=== PATIENT | male | born 1975 | race Caucasian/White ===

== ENCOUNTER 2017-06-25 18:45 | Inpatient (IN) | payer SELFPAY ==
[~2017-06-25] VITALS: Ht 175.3 cm; Wt 90.7 kg
[2017-06-25 20:17] LABS: ABG CO2 ARTERIAL 23 mmol/L (21-27); ARTERIAL BLD GAS O2 SATURATION 98 % (95-98); ARTERIAL BLOOD GAS PCO2 39 mmHg (32-45); ARTERIAL PO2 118 mmHg (70-100); BICARBONATE 22 mmol/L (21-28); BLOOD GAS BASE EXCESS -3 mM/L (-/+3); PH 7.37 Units (7.35-7.45)
[2017-06-25 20:25] LABS: BASO % 0.2 % (0-2); EOS % 0.5 % (0-7); EOSINOPHIL ABSOLUTE COUNT 0.1 tho/cmm (0.0-0.7); HCT-HEMATOCRIT 42.6 % (36.0-53.5); HGB-HEMOGLOBIN 14.9 gm/dl (13.5-17.0); IMMATURE GRANULOCYTES ABSOLUTE 0.07 tho/cmm (0-0.03); IMMATURE GRANULOCYTES PERCENT 0.5 % (0-0.3); LYMPH % 12.5 % (20-45); LYMPH ABSOLUTE COUNT 1.8 tho/cmm (0.8-4.5); MCH (MEAN CORPUSCULAR HGB) 29.2 pg (28.0-32.0); MCV (MEAN CELL VOLUME) 83.4 fl (82.0-96.0); MEAN PLATELET VOLUME 10.7 cmc (9.4-12.4); MONO % 5.8 % (0-12); MONOCYTE ABSOLUTE COUNT 0.8 tho/cmm (0.0-1.2); NEUTROPHIL ABSOLUTE COUNT 11.8 tho/cmm (1.6-8.0); NEUTROPHIL-AUTOMATED 11.8 tho/cmm (1.6-8.0); NEUTROPHILS % 80.5 % (40-80); PLATELET COUNT 249 tho/cmm (150-450); RED BLOOD COUNT 5.11 mil/cmm (4.40-5.70); RED CELL DISTRIBUTION WIDTH 12.6 % (12.4-16.4); WHITE BLOOD COUNT 14.6 tho/cmm (4.0-10.0)
[2017-06-25 20:30] LABS: PROTHROMBIN TIME 11.6 SECONDS (9.0-13.6)
[2017-06-25 20:40] LABS: ALBUMIN 3.5 g/dl (3.5-5.0); ALKALINE PHOSPHATASE 74 U/L (33-138); ALT/SGPT 44 U/L (12-78); BILIRUBIN,TOTAL 0.4 mg/dl (0.0-1.5); BLOOD UREA NITROGEN 21 mg/dl (6-24); CALCIUM 7.4 mg/dl (8.5-10.5); CARBON DIOXIDE-VENOUS 23 mmol/L (22-32); CHLORIDE 110 mmol/l (96-110); CREATININE 1.06 mg/dl (0.60-1.30); GLUCOSE 154 mg/dL (70-110); SODIUM 139 mmol/L (135-145); eGFR VALUE FOR BLACK >90 mL/Min
[2017-06-25 20:48] LABS: ANION GAP 10 mmol/L (0-20); POTASSIUM 4.1 mmol/L (3.7-5.1)
[2017-06-25 20:49] LABS: AST/SGOT 33 U/L (10-40)
[2017-06-26 06:43] LABS: ABG CO2 ARTERIAL 23 mmol/L (21-27); ARTERIAL BLD GAS O2 SATURATION 97 % (95-98); ARTERIAL BLOOD GAS PCO2 35 mmHg (32-45); ARTERIAL PO2 90 mmHg (70-100); BICARBONATE 22 mmol/L (21-28); BLOOD GAS BASE EXCESS -2 mM/L (-/+3); PH 7.42 Units (7.35-7.45)
[2017-06-26] MEDS ORDERED: IMITREX100 M2 PO (12:54)
[2017-06-26] MEDS ORDERED: TOPAMAX25 M3 PO (12:55)
[2017-06-26 18:52] LABS: BASO % 0.1 % (0-2); HGB-HEMOGLOBIN 15.8 gm/dl (13.5-17.0); IMMATURE GRANULOCYTES ABSOLUTE 0.05 tho/cmm (0-0.03); IMMATURE GRANULOCYTES PERCENT 0.3 % (0-0.3); LYMPH % 9.5 % (20-45); LYMPH ABSOLUTE COUNT 1.9 tho/cmm (0.8-4.5); MCH (MEAN CORPUSCULAR HGB) 29.2 pg (28.0-32.0); MCHC MEAN CORPUSCULAR HGB CONC 35.1 % (32.0-36.0); MCV (MEAN CELL VOLUME) 83.2 fl (82.0-96.0); MEAN PLATELET VOLUME 10.7 cmc (9.4-12.4); MONO % 4.7 % (0-12); MONOCYTE ABSOLUTE COUNT 0.9 tho/cmm (0.0-1.2); NEUTROPHIL ABSOLUTE COUNT 16.9 tho/cmm (1.6-8.0); NEUTROPHIL-AUTOMATED 16.9 tho/cmm (1.6-8.0); NEUTROPHILS % 85.4 % (40-80); PLATELET COUNT 252 tho/cmm (150-450); RED BLOOD COUNT 5.41 mil/cmm (4.40-5.70); RED CELL DISTRIBUTION WIDTH 13.1 % (12.4-16.4); WHITE BLOOD COUNT 19.7 tho/cmm (4.0-10.0)
[2017-06-26 19:09] LABS: CKMB 3.1 ng/ml (<3.6)
[2017-06-27 00:52] LABS: CKMB 2.3 ng/ml (<3.6); CREATINE PHOSPHOKINASE (CPK) 164 U/L (35-232)
[2017-06-27 07:16] LABS: BASO % 0.2 % (0-2); EOS % 0.4 % (0-7); EOSINOPHIL ABSOLUTE COUNT 0.1 tho/cmm (0.0-0.7); HCT-HEMATOCRIT 42.4 % (36.0-53.5); HGB-HEMOGLOBIN 14.6 gm/dl (13.5-17.0); IMMATURE GRANULOCYTES ABSOLUTE 0.04 tho/cmm (0-0.03); IMMATURE GRANULOCYTES PERCENT 0.2 % (0-0.3); LYMPH % 15.9 % (20-45); MCH (MEAN CORPUSCULAR HGB) 28.9 pg (28.0-32.0); MCHC MEAN CORPUSCULAR HGB CONC 34.4 % (32.0-36.0); MCV (MEAN CELL VOLUME) 83.8 fl (82.0-96.0); MEAN PLATELET VOLUME 10.8 cmc (9.4-12.4); MONO % 9.6 % (0-12); MONOCYTE ABSOLUTE COUNT 1.8 tho/cmm (0.0-1.2); NEUTROPHILS % 73.7 % (40-80); PLATELET COUNT 216 tho/cmm (150-450); RED BLOOD COUNT 5.06 mil/cmm (4.40-5.70); RED CELL DISTRIBUTION WIDTH 13.3 % (12.4-16.4)
[2017-06-27 07:37] LABS: ALB/GLOB RATIO 0.8 (0.8-2.0); ALBUMIN 2.8 g/dl (3.5-5.0); ALKALINE PHOSPHATASE 54 U/L (33-138); ALT/SGPT 29 U/L (12-78); ANION GAP 11 mmol/L (0-20); AST/SGOT 18 U/L (10-40); BILIRUBIN,TOTAL 0.6 mg/dl (0.0-1.5); BLOOD UREA NITROGEN 17 mg/dl (6-24); CARBON DIOXIDE-VENOUS 26 mmol/L (22-32); CHLORIDE 108 mmol/l (96-110); CKMB 1.7 ng/ml (<3.6); CREATINE PHOSPHOKINASE (CPK) 116 U/L (35-232); CREATININE 0.88 mg/dl (0.60-1.30); GLUCOSE 112 mg/dL (70-110); POTASSIUM 3.8 mmol/L (3.7-5.1); SODIUM 141 mmol/L (135-145); eGFR VALUE FOR BLACK >90 mL/Min
[2017-06-27] MEDS ORDERED: TOPIRAMATE25 M3 PO (09:14)
[2017-06-27] MEDS ORDERED: NITROSTAT0.4 M1 SL (14:48)
[2017-06-27] MEDS ORDERED: NORVASC2.5 M1 PO (14:52)
[2017-06-27] MEDS ORDERED: NORCO 5-325 TA1 EACH PO (14:53)
[2017-06-27] MEDS ORDERED: BENADRYL25 M3 PO (14:54)
[2017-06-27] MEDS ORDERED: IBUPROFEN200 M2 PO (14:56)
== END 2017-06-27 15:45 | DRG 935 ==
LOC: BURN 18:45
PROVIDERS: Physician Assistant Medical; Physician Assistant Surgical; ADMIT Surgery
PROC: 0HRDXK4 Replacement of Right Lower Arm Skin with Nonautologous Tissue Substitute, Partial Thickness, External Approach (ICD-10-PCS; principal; 2017-06-25)
PROC: 0B9C8ZX Drainage of Right Upper Lung Lobe, Via Natural or Artificial Opening Endoscopic, Diagnostic (ICD-10-PCS; 2017-06-25)
PROC: 0HR Skin and Breast, Replacement (ICD-10-PCS; 2017-06-25)
PROC: 0HRLXK4 Replacement of Left Lower Leg Skin with Nonautologous Tissue Substitute, Partial Thickness, External Approach (ICD-10-PCS; 2017-06-25)
PROC: 0HRKXK4 Replacement of Right Lower Leg Skin with Nonautologous Tissue Substitute, Partial Thickness, External Approach (ICD-10-PCS; 2017-06-25)
PROC: 0HR Skin and Breast, Replacement (ICD-10-PCS; 2017-06-25)
PROC: 0HR Skin and Breast, Replacement (ICD-10-PCS; 2017-06-25)
PROC: 5A1935Z Respiratory Ventilation, Less than 24 Consecutive Hours (ICD-10-PCS; 2017-06-25)
DX: T23.002A Burn of unspecified degree of left hand, unspecified site, initial encounter (principal); T31.10 Burns involving 10-19% of body surface with 0% to 9% third degree burns; T23.001A Burn of unspecified degree of right hand, unspecified site, initial encounter; T22.012A Burn of unspecified degree of left forearm, initial encounter; T22.011A Burn of unspecified degree of right forearm, initial encounter; T24.032A Burn of unspecified degree of left lower leg, initial encounter; T24.031A Burn of unspecified degree of right lower leg, initial encounter; X04.XXXA Exposure to ignition of highly flammable material, initial encounter; R07.9 Chest pain, unspecified; G43.909 Migraine, unspecified, not intractable, without status migrainosus
CPT/HCPCS: C8929; J1100; J1650; J2250; J3010

== ENCOUNTER 2017-07-01 12:29 | Emergency (ER) | payer SELFPAY ==
[~2017-07-01] VITALS: Ht 175.3 cm; Wt 88.2 kg
[~2017-07-01 12:29] MED LIST: BENADRYL25 M3 PO; IBUPROFEN200 M2 PO; IMITREX100 M2 PO; NITROSTAT0.4 M1 SL; NORCO 5-325 TA1 EACH PO; NORVASC2.5 M1 PO; TOPAMAX25 M3 PO; TOPIRAMATE25 M3 PO
== END 2017-07-01 16:06 ==
LOC: EDMED 12:29
DX: T22.212A Burn of second degree of left forearm, initial encounter (principal); T24.392A Burn of third degree of multiple sites of left lower limb, except ankle and foot, initial encounter; T24.391A Burn of third degree of multiple sites of right lower limb, except ankle and foot, initial encounter; T22.211A Burn of second degree of right forearm, initial encounter; T20.10XA Burn of first degree of head, face, and neck, unspecified site, initial encounter; T31.11 Burns involving 10-19% of body surface with 10-19% third degree burns; V49.9XXA Car occupant (driver) (passenger) injured in unspecified traffic accident, initial encounter
CPT/HCPCS: J1170